=== PATIENT | male | born 1935 | race Caucasian/White ===

== ENCOUNTER → 2017-01-27 | Outpatient (CLI) | payer BC ==
--- NOTE | 2017-01-27 15:58 | DIAGNOSTIC IMAGING REPORT ---
CHEST 2 VIEWS ROUTINE CLINICAL HISTORY: Bilateral rib pain COMPARISON STUDY: No previous studies for comparison. FINDINGS: The cardiac and mediastinal contours are normal. There is no failure. There is no focal pulmonary consolidation. There is no pneumothorax. There are old fractures of the right seventh and eighth ribs.[ No pleural effusions are visualized. IMPRESSION: Old right seventh and eighth rib fractures. No active disease in the chest. Electronically signed by: Bulmaro Doherty M.D. 01/27/2017 3:56 PM Dictated Date/Time: 01/27/2017 3:55 PM
--- NOTE | 2017-01-27 15:59 | DIAGNOSTIC IMAGING REPORT ---
ADDENDUM Periosteal reaction is suggested at the right lateral seventh rib. Only minimal periosteal reaction suggested at the eighth rib. These are age-indeterminate and possibly subacute to chronic. Electronically signed by: Linus Salcido M.D. 01/30/2017 9:18 AM Dictated Date/Time: 01/30/2017 9:18 AM ORIGINAL REPORT RIBS BILATERAL MIN 3 VIEWS CLINICAL HISTORY: 81 years-old Male presenting with RIB PAIN. TECHNIQUE: Frontal and oblique views of the bilateral ribs were obtained. COMPARISON: Correlation made to chest x-ray from 01/27/2017. FINDINGS: Cortical deformity of the right lateral seventh and eighth ribs consistent with acute fractures. No left-sided rib fracture. Limited evaluation of the thorax demonstrates atherosclerosis of aortic arch and a normal sized cardiac silhouette. Lungs and pleural spaces grossly clear. Cholecystectomy and additional surgical clips noted in the abdomen. Degenerative changes of the spine. IMPRESSION: Acute fractures of the right lateral seventh and eighth ribs. Electronically signed by: Linus Salcido M.D. 01/27/2017 3:57 PM Dictated Date/Time: 01/27/2017 3:55 PM
[2017-01-27 16:49] LABS: BASO % 0.3 %; BASO ABS # 0.02 K/uL (0-0.2); COMPLETE YES; EOS % 2.7 %; HEMATOCRIT 43.3 % (42-52); LYMPH % 38.5 %; LYMPH ABS # 2.44 K/uL (1.2-3.4); MEAN CELL VOLUME 90.8 fL (80-100); MEAN CORPUSCULAR HGB CONC 34.2 g/dl (32-36); MEAN PLATELET VOLUME 9.3 fL (7.4-10.4); MONO % 7.1 %; NEUT % 51.4 %; PLATELET COUNT 217 K/uL (130-400); RED BLOOD COUNT 4.77 M/uL (4.7-6.1); WHITE BLOOD COUNT 6.33 K/uL (4.8-10.8)
[2017-01-27 17:15] LABS: ALT/SGPT 23 U/L (12-78); BLOOD UREA NITROGEN 19 mg/dl (7-18); BUN/CREATININE RATIO 13.8 (10-20); CALCIUM 9.6 mg/dl (8.5-10.1); CARBON DIOXIDE 26 mmol/L (21-32); CHLORIDE 104 mmol/L (98-107); GLUCOSE 159 mg/dl (70-99); SODIUM 138 mmol/L (136-145)
[2017-01-27 17:26] LABS: ALB/GLOB RATIO 1.1 (0.9-2); ALKALINE PHOSPHATASE 101 U/L (45-117); AST/SGOT 20 U/L (15-37)
[2017-01-28 07:28] LABS: ESTIMATED AVERAGE GLUCOSE 166 mg/dl; HA1C FLAG Normal (Normal)
== END | disposition home or self-care (01) ==
LOC: C.RADBC 15:27
PROVIDERS: ATTEND Internal Medicine
DX: R07.81 Pleurodynia (principal); R73.09 Other abnormal glucose

== ENCOUNTER → 2017-05-03 | Outpatient (CLI) | payer OTHER, BC | END | disposition home or self-care (01) | LOC: C.LABBC 09:25 | PROVIDERS: ATTEND Internal Medicine | DX: E11.9 Type 2 diabetes mellitus without complications (principal); R73.09 Other abnormal glucose; E03.9 Hypothyroidism, unspecified ==

== ENCOUNTER 2023-09-14 18:59 | Inpatient (IN) ==
[2023-09-14] MEDS: SODIUM CHLORIDE 0.9% 1,000 ML IV SCH (19:23)
--- NOTE | 2023-09-14 19:32 | Emergency Department Note ---
Impression & Plan Stroke-like symptoms ED Provider Note NAME: LENA SHELTON AGE: 88 SEX: Male INFORMANT: Patient ED PROVIDER(S): Godfrey Lemus MD CHIEF COMPLAINT: Strokelike symptoms PLAN: Disposition: Admitted Outpatient prescription management: none Referral: None MEDICAL DECISION MAKING: Patient presented with strokelike symptoms. Currently they resolved. Last well-known time was around 1830 hrs. Full history and physical examination was performed. Stroke alert was initiated. I did ask for the administrative secretary to contact [facility]. I also asked for prior visit records from the [facility]. I did consult with stroke alert [place] physician, Dr. Husain. He recommended only the dry CT given the resolution of symptoms. MRI, baby aspirin, Plavix load of 300 mg, and admission for observation was also recommended. CT imaging did reveal the presence of a subacute infarct. Contacted [facility] again and discussed the findings with Dr. Tipton. She recommended a full load of aspirin at 324 mg, Plavix load of 300 mg, starting 81 mg of aspirin tomorrow and 75 mg of Plavix tomorrow. Also recommended admission. Recommended administration of 80 mg of atorvastatin. This was done. MR imaging was ordered. Unfortunately patient's GFR is too low to receive contrast safely for MRA of the neck. Discussed this with the hospitalist and patient will have ultrasound imaging done. Patient did have MRI/MRA of the head performed. Consultation was made with Dr. Marcin Lerma of the [facility] service. Patient was evaluated in the ER for further management. Care/management discussed with: finance manager Level of care consideration(s): After review of the information above and other included data, I feel the patient can be managed safely as an outpatient/could have required admission but improved significantly and is stable for discharge/requires escalation of care to admission. Triage Nursing notes: reviewed and agree them. Vital Signs: reviewed and remarkable for no significant abnormalities Additional History obtained from: Family. They note facial droop and weakness has resolved. Chronic Medical/Social Conditions affecting care: CAD Prior/ Outside/ External records reviewed: none Differential Diagnosis: CVA, TIA,Infection, dehydration, metabolic abnormality, hypo/hyperglycemia, electrolyte disturbance, anemia, hypoxia, cardiac sources, intracerebral event, toxicologic, neurologic, as well as other pathologies. Diagnostics, independently interpreted by me: ECG: Twelve-lead ECG was sinus rhythm with occasional PVCs at [address] elevation. No depression. Inferior Q waves. Anterior Q waves. No prior for comparison. Cardiac Monitoring: Cardiac monitoring ordered by me: The patient was placed on continuous cardiac monitoring and observed. It revealed a sinus rhythm at 87 beats per minute with occasional PVC. Medical decision rules: none Imaging studies: CT imaging of the head is concerning for a right parietal/occipital subacute infarct. I refer you to the EMR for further details. HPI: 88 year old Male arrives for evaluation of strokelike symptoms. This started around 1830 hrs. and is resolved. Patient was noticed to have some confusion, slurred speech, left facial droop and right arm weakness. He was evaluated by medical provider at the scene and weakness and facial drooping was verified. Upon arrival to the emergency department the symptoms have resolved. Family is present and states that his facial droop is resolved as well as his speech has normalized. Patient states he feels generally weak in the legs but denies any focal findings. Denies any pain. The patient also notes the following associated symptoms, none. 1 week ago the patient had an episode of decreased responsiveness that was transient. There was no drooping or weakness like tonight. He was evaluated in [facility] and [facility] neurowork-up was negative including neuroimaging. The patient has taken no medication tonight for relieving factors. Current pain is rated as 0/10. Pt denies LOC, headache, fevers, chills, diaphoresis, new visual changes, neck pain, chest pain, breathing difficulties, nausea, vomiting, abdominal pain, back pain, melena, hematochezia, urinary symptoms, numbness, or other complaints. PAST MEDICAL HISTORY: See Below, CAD, diabetes PAST SURGICAL HISTORY: See Below, SOCIAL HISTORY: See Below, retired HOME MEDICATIONS: See Below ALLERGIES: See Below VITALS: See Below PHYSICAL EXAMINATION: GENERAL: Awake, alert, well-appearing, in no distress HENT: Normocephalic, atraumatic. Oropharynx unremarkable. EYES: Normal conjunctiva. Sclera non-icteric. PERRLA. EOMI. NECK: Inspection normal. Non-tender. Supple. No nuchal rigidity. FROM. No masses. RESPIRATORY: Clear to auscultation. No wheezes. No rales. Normal respiratory effort. CARDIAC: Normal rate. Normal rhythm. No murmurs. No rubs. Extremities warm and well perfused. Pulses equal. No JVD. GI: Soft, non-distended. No tenderness to palpation. No rebound or guarding. No masses. RECTAL: Deferred. MUSCULOSKELETAL: Atraumatic. Chest examination reveals no tenderness. The back is symmetrical on inspection without obvious abnormality. There is no CVA tenderness to palpation. No joint edema. LOWER EXTREMITIES: Calves are equal size bilaterally and non-tender. No edema. No discoloration. NEURO: Normal sensorium. No sensory or motor deficits noted. Cranial nerves II through XII intact, patient hard of hearing but otherwise normal. No drift. Normal rapid alternating movements. Speech normal SKIN: No rash or jaundice noted. PROCEDURES: none CRITICAL CARE: none OBSERVATION NOTE: none Past Med/Surg History Problem List (Updated 09/14/23 @ 21:11 by Edilberto Chow PA-C) Elevated troponin Stroke-like symptoms (Acute) Rib pain on right side Acute low back pain Post herpetic neuralgia Urothelial carcinoma of kidney CKD (chronic kidney disease), stage III Type 2 diabetes mellitus without complications (Chronic) Elevated serum creatinine (Chronic) Hypothyroidism (Chronic) Type 2 diabetes mellitus (Chronic) Coronary artery disease (Chronic) Dyslipidemia (Chronic) Elevated TSH (Chronic) Essential hypertension (Chronic) Bladder cancer (Chronic) Intermittent palpitations (Chronic) Medical History (Updated 09/14/23 @ 21:11 by Edilberto Chow PA-C) History of lower leg fracture Essential hypertension Non-ST elevation NM (NSTEMI) No history of stroke Hypertension Surgical History History of cholecystectomy H/O transurethral destruction of bladder lesion History of appendectomy S/P CABG (coronary artery bypass graft) History of cystoscopy Family History Father Hypertension Alcoholism Mother Ovarian cancer Other Family history non-contributory Social History Smoking Status: Former smoker Hx Alcohol Use: No Hx Substance Use: No Preferred Language: Cypriot Communication Ability: Effective Visual Impairment: Limited Hearing Ability: Normal Living Manager Required: No Beliefs That Will Affect Care: None marital status: Current Living Situation: Spouse current occupational status: retired Feels Safe at Home: Yes Childhood Exposure to Second-Hand Smoke: No caffeine: Yes Dental Care, Regularly: Yes Physical Activity Frequency: Daily Seatbelt Use: always Sunscreen Use: Yes Assistive Devices: Hearing Aid - Right Allergies Allergies Allergy/AdvReac Type Severity Reaction Status Date / Time No Known Allergies Allergy Verified 08/26/20 09:11 Home Meds Home Medications Medication Instructions Recorded Confirmed lancets (OneTouch UltraSoft #50 ea 01/31/19 08/26/20 Lancets) Previous Rx's Medication Instructions Recorded atorvastatin 40 mg tablet 40 mg PO QAM #1 tab 01/25/19 aspirin 81 mg tablet,delayed 81 mg PO QAM #90 tabs 02/26/19 release (Ecotrin Low Strength) gabapentin 100 mg capsule See Rx Instructions PO DAILY #60 10/04/19 caps levothyroxine 25 mcg tablet 25 mcg PO DAILY #30 tabs 12/03/19 metoprolol succinate 25 mg 12.5 mg (1/2 x 25 mg) PO DAILY #45 02/03/22 tablet,extended release 24 hr tabs Results & Data (ED) Vital Signs Vital Signs - 24 hr 09/14/23 19:03 09/14/23 19:25 09/14/23 20:00 Temperature 36.8 C Temperature Source Temporal Artery Scan Pulse Rate 87 Pulse Rate [Apical] 93 H 76 Respiratory Rate 16 17 19 Respiratory Effort / Characteristics Non-Labored Spontaneous Respiratory Depth Normal Respiratory Pattern Regular Blood Pressure 138/70 Blood Pressure [Right Arm] 169/84 H 170/73 H Blood Pressure Mean 92 Blood Pressure Mean [Right Arm] 112 105 Blood Pressure Position Sitting Pulse Oximetry 98 99 96 Oxygen Delivery Method Room Air Room Air Room Air Sepsis Recent Fever Within 48 Hours No Sepsis New/Unexplained Change in Mental Status N/A Sepsis Action Taken by Nursing No Action Required 09/14/23 21:00 Temperature Temperature Source Pulse Rate Pulse Rate [Apical] 85 Respiratory Rate 23 Respiratory Effort / Characteristics Respiratory Depth Respiratory Pattern Blood Pressure Blood Pressure [Right Arm] 141/76 H Blood Pressure Mean Blood Pressure Mean [Right Arm] 97 Blood Pressure Position Pulse Oximetry 96 Oxygen Delivery Method Room Air Sepsis Recent Fever Within 48 Hours Sepsis New/Unexplained Change in Mental Status Sepsis Action Taken by Nursing Laboratory Data 09/14/23 19:31 09/14/23 19:31 Lab Results 09/14/23 09/14/23 09/14/23 Range/Units 19:22 19:26 19:31 WBC 10.96 H (4.8-10.8) K/ul RBC 4.89 (4.70-6.10) M/uL Hgb 15.1 (14.0-18.0) g/dl POC Hgb 14.6 (14.0-18.0) g/dl Hct 44.3 (42.0-52.0) % POC Hct 43 (42-52) % MCV 90.6 (80.0-100.0) fL MCH 30.9 (25.0-34.0) pg MCHC 34.1 (32.0-36.0) g/dL RDW Std Deviation 43.2 (36.4-46.3) fL RDW Coeff of Mike 13.2 (11.5-14.5) % Plt Count 219 (130-400) K/uL MPV 9.5 (9.4-12.4) fL Immature Gran % (Auto) 0.4 % Neut % (Auto) 70.8 % Lymph % (Auto) 19.5 % [place] % (Auto) 7.9 % Eos % (Auto) 1.0 % Baso % (Auto) 0.4 % Neut # (Auto) 7.76 H (1.40-6.50) K/uL Lymph # (Auto) 2.14 (1.20-3.40) K/uL [place] # (Auto) 0.87 H (0.11-0.59) K/uL Eos # (Auto) 0.11 (0.00-0.50) K/uL Baso # (Auto) 0.04 (0.00-0.20) K/uL Immature Gran # (Auto) 0.04 (0.01-0.20) K/uL PT 10.4 (9.0-12.0) Seconds INR 1.0 (0.9-1.1) APTT 27 (21-31) Seconds PTT Ratio 1.0 POC Sodium 139 (135-144) mmol/L Sodium 137 (136-145) mmol/L POC Potassium 4.3 (3.3-5.0) mmol/L Potassium 4.5 (3.5-5.1) mmol/L POC Chloride 104 (101-112) mmol/L Chloride 105 (98-107) mmol/L Carbon Dioxide 23 (21-32) mmol/L POC Total CO2 24 (24-31) mmol/L Anion Gap 9 (3-11) POC Anion Gap 16.0 (16-25) mmol/L POC BUN 32 H (7-18) mg/dl BUN 32 H (6-23) mg/dl Creatinine 2.09 H (0.6-1.4) mg/dl POC Creatinine 2.4 H (0.6-1.3) mg/dl Est Cr Clr Drug Dosing 27.1 ml/min Est GFR ( Amer) 31.6 ml/min Est GFR (Non-Af Amer) 27.2 ml/min BUN/Creatinine Ratio 15.3 (10-20) Glucose 171 H (70-99(Fasting)) mg/dl POC Glucose 141 H (70-99) mg/dl POC Glucose (other) 171 H (70-99) mg/dl Calcium 9.6 (8.6-10.3) mg/dl POC Ioniz Calcium Guerline 1.22 (1.12-1.32) mmol/l Magnesium 2.2 (1.7-2.4) mg/dl Total Bilirubin 0.5 (0.2-1.0) mg/dl AST 22 (13-39) U/L ALT 25 (7-52) U/L Alkaline Phosphatase 89 (34-104) U/L Troponin I High Sens 40.1 H (0-20) pg/ml Total Protein 7.4 (6.0-8.3) gm/dl Albumin 4.3 (3.4-5.0) gm/dl Globulin 3.1 (2.5-4.0) gm/dl Albumin/Globulin Ratio 1.4 (0.9-2) Blood Type O Positive Antibody Screen NEGATIVE Administered Medications Sodium Chloride (Nss) 1,000 mls @ 50 mls/hr IV .Q20H ARAVIND Stop: 10/14/23 19:14 Last Admin: 09/14/23 19:23 Dose: 50 mls/hr Documented By: LUIS DANIEL Discontinued Medications Aspirin (Aspirin Chew 324 Mg) 324 mg PO NOW STA Stop: 09/14/23 20:28 Last Admin: 09/14/23 21:03 Dose: 324 mg Documented By: LUIS DANIEL Clopidogrel Bisulfate (Clopidogrel Bisulfate 300 Mg Tab) 300 mg PO NOW STA Stop: 09/14/23 20:28 Last Admin: 09/14/23 21:03 Dose: 300 mg Documented By: [facility] Imaging Data Radiologist's Impression: Head CT 09/14/23 19:11 CR Exam(s): CT HEAD Without Contrast EXAM: CT Head Without Intravenous Contrast CLINICAL HISTORY: Reason for exam: neuro deficit, acute stroke suspected. TECHNIQUE: Axial computed tomography images of the head/brain without intravenous contrast. CTDI is 39.03 mGy and DLP is 625.8 mGy-cm. Automated exposure control was utilized for the study. A dose lowering technique was utilized adhering to the principles of ALARA. COMPARISON: CT head on 02/14/2018. FINDINGS: Brain: Hypoattenuation in the right parietal occipital region which is probably represents remote infarct, but component of subacute infarct is not excluded. Further evaluation could be performed with MRI. No extra- axial fluid collection. No mass effect or midline shift. Scattered areas of hypoattenuation in the supratentorial white matter likely represent chronic small vessel ischemic changes. 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 Small remote lacunar infarct in the left basal ganglia. Ventricles and sulci: Prominence of the ventricles and sulci is likely secondary to cerebral volume loss. Bones: Normal. No bony lesion or acute fracture. Subcutaneous tissues: Normal. Sinuses: Polyps versus mucous retention cysts in the maxillary sinuses. Mastoid air cells: Normal. Orbits: Bilateral lens implants. Other: Atherosclerotic calcifications in the intracranial vasculature. IMPRESSION: 1. Hypoattenuation in the right parietal occipital region which is probably represents remote infarct, but component of subacute infarct is not excluded. Further evaluation could be performed with MRI. 2. Chronic small vessel ischemic changes and cerebral volume loss. 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 Small remote lacunar infarct in the left basal ganglia. Communications: Call Doctor Stroke Electronically signed by: Kashif Ford M.D. 09/14/23 20:04 PM Discharge Plan Visit Data Chief Complaint: TIA Symptoms Stated Complaint: SPEACH DIFFICULTY, WEAK ON THE SIDE, ED Provider: Godfrey Lemus Discharge Problem: Stroke-like symptoms Patient Disposition: Admitted As Inpatient Discharge Instructions Interventions: ED Discharge Assessment Last Done: 09/14/23 21:40 Forms Stand Alone Forms: My [facility] Applied [employer] Prescriptions Prescriptions: No Action atorvastatin 40 mg tablet 40 mg PO QAM Qty: 1 0RF aspirin [Ecotrin Low Strength] 81 mg tablet,delayed release (DR/EC) 81 mg PO QAM Qty: 90 1RF gabapentin 100 mg capsule See Rx Instructions PO DAILY Qty: 60 1RF Rx Instructions: 100mg at QHS for 3 nights, then increase to 200mg QHS for 3 nights, then if needed increase to 300mg QHS levothyroxine 25 mcg tablet 25 mcg PO DAILY Qty: 30 2RF metoprolol succinate 25 mg tablet extended release 24 hr 12.5 mg PO DAILY Qty: 45 3RF (DME) lancets [OneTouch UltraSoft Lancets] misc See Dose Instructions .ROUTE .MEDSUPPLY Qty: 50 Rx Instructions: As directed Referrals Referrals: PCP,NO [Primary Care Provider] -
[2023-09-14 19:39] LABS: iSTAT Creatinine 2.4 mg/dl (0.6-1.3); iSTAT Hemoglobin 14.6 g/dl (14.0-18.0); iSTAT Ionized Calcium 1.22 mmol/l (1.12-1.32); iSTAT Potassium 4.3 mmol/L (3.3-5.0)
[2023-09-14 19:44] LABS: Basophils # (auto) 0.04 K/uL (0.00-0.20); Basophils % (auto) 0.4 %; Eosinophils # (auto) 0.11 K/uL (0.00-0.50); Hematocrit (blood only) 44.3 % (42.0-52.0); Hemoglobin 15.1 g/dl (14.0-18.0); Immature Granulocytes # (auto) 0.04 K/uL (0.01-0.20); Immature Granulocytes % (auto) 0.4 %; Lymphocytes # (auto) 2.14 K/uL (1.20-3.40); Lymphocytes % (auto) 19.5 %; Mean Corpuscular Hemoglobin 30.9 pg (25.0-34.0); Mean Corpuscular Hgb Conc 34.1 g/dL (32.0-36.0); Mean Corpuscular Volume 90.6 fL (80.0-100.0); Mean Platelet Volume 9.5 fL (9.4-12.4); Monocytes # (auto) 0.87 K/uL (0.11-0.59); Monocytes % (auto) 7.9 %; Neutrophils # (auto) 7.76 K/uL (1.40-6.50); Neutrophils % (auto) 70.8 %; Platelet Count 219 K/uL (130-400); RDW Coefficient of Variation 13.2 % (11.5-14.5); RDW Standard Deviation 43.2 fL (36.4-46.3); Red Blood Count 4.89 M/uL (4.70-6.10); White Blood Count 10.96 K/ul (4.8-10.8)
[2023-09-14 19:57] LABS: Partial Thromboplastin Time 27 Seconds (21-31); Prothrombin Time 10.4 Seconds (9.0-12.0)
--- NOTE | 2023-09-14 20:05 | CT Scan Report ---
Exam(s): CT HEAD Without Contrast EXAM: CT Head Without Intravenous Contrast CLINICAL HISTORY: Reason for exam: neuro deficit, acute stroke suspected. TECHNIQUE: Axial computed tomography images of the head/brain without intravenous contrast. CTDI is 39.03 mGy and DLP is 625.8 mGy-cm. Automated exposure control was utilized for the study. A dose lowering technique was utilized adhering to the principles of ALARA. COMPARISON: CT head on 02/14/2018. FINDINGS: Brain: Hypoattenuation in the right parietal occipital region which is probably represents remote infarct, but component of subacute infarct is not excluded. Further evaluation could be performed with MRI. No extra- axial fluid collection. No mass effect or midline shift. Scattered areas of hypoattenuation in the supratentorial white matter likely represent chronic small vessel ischemic changes. 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 Small remote lacunar infarct in the left basal ganglia. Ventricles and sulci: Prominence of the ventricles and sulci is likely secondary to cerebral volume loss. Bones: Normal. No bony lesion or acute fracture. Subcutaneous tissues: Normal. Sinuses: Polyps versus mucous retention cysts in the maxillary sinuses. Mastoid air cells: Normal. Orbits: Bilateral lens implants. Other: Atherosclerotic calcifications in the intracranial vasculature. IMPRESSION: 1. Hypoattenuation in the right parietal occipital region which is probably represents remote infarct, but component of subacute infarct is not excluded. Further evaluation could be performed with MRI. 2. Chronic small vessel ischemic changes and cerebral volume loss. 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 Small remote lacunar infarct in the left basal ganglia. Communications: Call Doctor Stroke Electronically signed by: Kashif Ford M.D. 09/14/23 20:04 PM
[2023-09-14 20:09] LABS: Albumin Globulin Ratio 1.4 (0.9-2); Albumin Level 4.3 gm/dl (3.4-5.0); BUN Creatinine Ratio 15.3 (10-20); Bilirubin,Total 0.5 mg/dl (0.2-1.0); Calcium 9.6 mg/dl (8.6-10.3); Creatinine Clr Calc Pharmacy 27.1 ml/min; Est GFR (African American) 31.6 ml/min; Est GFR (Non-African American) 27.2 ml/min; Globulin 3.1 gm/dl (2.5-4.0); Magnesium 2.2 mg/dl (1.7-2.4); Potassium 4.5 mmol/L (3.5-5.1); Total Protein 7.4 gm/dl (6.0-8.3)
[2023-09-14 20:15] LABS: Troponin I High Sensitivity 40.1 pg/ml (0-20)
--- NOTE | 2023-09-14 20:35 | History & Physical Report ---
Date of Service September 14, 2023 Assessment & Plan (1) Stroke-like symptoms: Plan: -Admit to the PCU on tele -Currently stable and back to his neurologic baseline -Presented to the ED after a 15 second episode of decreased responsiveness, left sided facial droop, and right arm weakness this evening -Was made a stroke alert on arrival >CT of the head/neck wo con shows Hypoattenuation in the right parietal occipital region which probably represents remote infarct, but component of subacute infarct is not excluded. -CTA's of the head/neck were not obtained on arrival due to his renal function -[facility] loading with 300 mg Plavix, 324 mg Aspirin, and high dose stain (received in the ED) -Will obtain MRI wo con, MRA wo, and BL carotid dopplers on admission -Will obtain TTE, A1c, and fasting lipid pane; tomorrow -Neurology consult placed -Fall/aspiration precautions, q4h neuro checks -PT/OT consults -Continue 81 mg aspirin, 75 mg Plavix, and high dose statin tomorrow -BL SCD's for DVT PPX -HH/DMII diet with 2gm sodium restriction -AM CBC, CMP, mag, PT/INR (2) Elevated troponin: Plan: -Initial high sen trop elevated at 40 -Patient denies chest pain/discomfort, SOB/GARCIA -No acute ST segment or T-wave changes on ECG -Likely a combination of his known CAD S/P CABG x 4, not taking his aspirin/statin in the recent past, and demand -Will repeat a 2 hour high sen trop now -Follow TTE tomorrow -Continue to monitor on tele (3) Type 2 diabetes mellitus without complications: Plan: -Hold Jardiance for now -Monitor BSG ACHS, goal is 110-160 -Start CF 50 and CR 15 for now -Adjust regimen as needed (4) Hypothyroidism: Plan: -Continue levothyroxine (5) Coronary artery disease: Plan: -Resume Aspirin and statin -Continue Plavix for now Plan The patient was discussed with Dr. 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 Patient was made a stroke alert on arrival. He was found to be hypertensive at 169/84 but otherwise stable. Labs were significant for a leukocytosis of 10 with neutrophil predominance of 7, glucose WNL, and initial high sen trop of 40. CT of the head/brain wo con was read as 1. Hypoattenuation in the right parietal occipital region which is probably represents remote infarct, but component of subacute infarct is not excluded. Further evaluation could be performed with MRI. 2. Chronic small vessel ischemic changes and cerebral volume loss. 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 Small remote lacunar infarct in the left basal ganglia. Chest xray did not show acute findings. The patient was evaluated by [facility] who recommended admission with initiation of 300 mg Plavix, 324 mg Aspirin, Starting a statin, and obtaining MRI/MRA of the head for further evaluation. Prior to admission the patient was given 1L NSS, 300 mg Plavix, 324 mg Aspirin, and 80 mg Atorvastatin. At the time of the exam the patient was sitting in bed in no acute distress with his children bedside, history was obtained from both. Family states that the patient now lives in [place] but they are in town for a wedding. Last week he had a similar episode to today and was evaluated in their local ED in [place]. Family states that he had a full neurologic evaluation and was told he did not have a CVA. They monitored him overnight as his troponin level was mildly elevated. He was discharged home the next day. They were at dinner this evening when the patient had an approximately 15 second episode where he was staring straight, not responding to them, and had left sided facial droop and right arm weakness. They state that he was back to his baseline by the time they arrived to the ED. When asked, the patient denies any complaints at this time including fever, chills, headache, changes in vision, hearing, taste, smell, paresthesias, unilateral weakness, chest pain, SOB, abd pain, nausea, vomiting, diarrhea, dysuria, hematuria, melena, LE swelling, and recent trauma. Family confirms he is back to his neurologic baseline. Family explains that the patient has been very stubborn regarding medications recently and had stopped taking his aspirin and stain. He has only been taking his Jardiance and levothyroxine as of today. I explained the importance of resuming his aspirin and statin moving forward to try and prevent further episodes or worse than today and complications surrounding his heart. He is a DNR/DNI and his children are his POA if he cannot make decisions for himself. Regarding his recurrent lip smacking, family confirms he has been doing this for years, this is not a new finding today. Please refer to Dr. Lerma's attestation for any changes to the treatment plan Allergies Allergy/AdvReac Type Severity Reaction Status Date / Time No Known Allergies Allergy Verified 09/15/23 10:23 Home Medications Medication Instructions Recorded Confirmed Type lancets (OneTouch UltraSoft #50 ea 01/31/19 08/26/20 History Lancets) levothyroxine 25 mcg tablet 25 mcg PO DAILY #30 tabs 12/03/19 09/15/23 Rx ascorbic acid (vitamin C) 500 mg 500 mg PO DAILY 09/15/23 09/15/23 History chewable tablet (Vitamin C) aspirin 81 mg tablet,delayed 81 mg PO QAM 30 days #30 tabs 09/15/23 Rx release atorvastatin 40 mg tablet 80 mg (2 x 40 mg) PO QAM 30 days 09/15/23 Rx #60 tabs clopidogrel 75 mg tablet 75 mg PO QAM #30 tabs 09/15/23 Rx empagliflozin 10 mg tablet 10 mg PO DAILY 09/15/23 09/15/23 History (Jardiance) multivitamin with minerals-folic 1 tab PO BID 09/15/23 09/15/23 History acid 200 mcg chewable tablet (Multivitamin Gummies) Past Med/Surg History Problem List (Updated 09/14/23 @ 21:11 by Edilberto Chow PA-C) Elevated troponin Stroke-like symptoms (Acute) Rib pain on right side Acute low back pain Post herpetic neuralgia Urothelial carcinoma of kidney CKD (chronic kidney disease), stage III Type 2 diabetes mellitus without complications (Chronic) Elevated serum creatinine (Chronic) Hypothyroidism (Chronic) Type 2 diabetes mellitus (Chronic) Coronary artery disease (Chronic) Dyslipidemia (Chronic) Elevated TSH (Chronic) Essential hypertension (Chronic) Bladder cancer (Chronic) Intermittent palpitations (Chronic) Medical History (Updated 09/14/23 @ 21:11 by Edilberto Chow PA-C) History of lower leg fracture Essential hypertension Non-ST elevation MD (NSTEMI) No history of stroke Hypertension Surgical History History of cholecystectomy H/O transurethral destruction of bladder lesion History of appendectomy S/P CABG (coronary artery bypass graft) History of cystoscopy Family History Father Hypertension Alcoholism Mother Ovarian cancer Other Family history non-contributory Social History Smoking Status: Former smoker Hx Alcohol Use: Yes Alcohol type: beer Hx Substance Use: No Preferred Language: Nigerien Communication Ability: Effective Visual Impairment: Limited Hearing Ability: Normal Poultry Process Worker Required: No Beliefs That Will Affect Care: None and Faith Faith Beliefs: AMISH marital status: Current Living Situation: Alone Current Living Situation Comment: INDEPENT LIVING current occupational status: retired Feels Safe at Home: Yes Childhood Exposure to Second-Hand Smoke: No caffeine: Yes Dental Care, Regularly: Yes Physical Activity Frequency: Daily Seatbelt Use: always Sunscreen Use: Yes Assistive Devices: Cane and Walker Physical Exam Physical Exam: Physical Exam: General: In no acute distress, stated age, well-nourished, good hygiene HEENT: Normocephalic, atraumatic, no scleral icterus, pupils around round, symmetrical, and reactive to light, moist mucus membranes, trachea midline, no thyromegaly Chest/Pulm: No respiratory distress, symmetrical chest expansion, clear breath sounds throughout Cardiac: RRR, no murmurs noted Abdomen: Negative for ascites and bruising, normoactive bowel sounds, soft, non-tender to palpation throughout Musculoskeletal: Symmetrical and without signs of acute trauma, upper and lower extremities with full ROM, no atrophy, spasticity, or flaccidity Extremities: Radial, dorsalis pedis, and posterior tibial pulses are intact and symmetrical, no edema noted in the BL LE's Skin: Warm, dry, no rashes , lesions, or scars noted Neuro: Alert and oriented to person, place, month, year, and president, no focal defects, CN II-XII tested and intact, negative cerebellar and pronator drift in the BL UE's, no tremors noted Psych: No acute distress, calm and cooperative during the exam Results & Data Results & Data Vital Signs (Past 12 Hours) Vital Signs Temp Pulse Pulse Resp BP BP Pulse Ox 09/14/23 20:00 76 19 170/73 H 96 09/14/23 19:25 93 H 17 169/84 H 99 09/14/23 19:03 36.8 C 87 16 138/70 98 O2 Del Method 09/14/23 20:00 Room Air 09/14/23 19:25 Room Air 09/14/23 19:03 Room Air Laboratory Results Abnormal lab results 09/14/23 09/14/23 09/14/23 Range/Units 19:22 19:26 19:31 WBC 10.96 H (4.8-10.8) K/ul Neut # (Auto) 7.76 H (1.40-6.50) K/uL Benton # (Auto) 0.87 H (0.11-0.59) K/uL POC BUN 32 H (7-18) mg/dl BUN 32 H (6-23) mg/dl Creatinine 2.09 H (0.6-1.4) mg/dl POC Creatinine 2.4 H (0.6-1.3) mg/dl Glucose 171 H (70-99(Fasting)) mg/dl POC Glucose 141 H (70-99) mg/dl POC Glucose (other) 171 H (70-99) mg/dl Troponin I High Sens 40.1 H (0-20) pg/ml Diagnostic Findings Head CT 09/14/23 19:11 CR Exam(s): CT HEAD Without Contrast EXAM: CT Head Without Intravenous Contrast CLINICAL HISTORY: Reason for exam: neuro deficit, acute stroke suspected. TECHNIQUE: Axial computed tomography images of the head/brain without intravenous contrast. CTDI is 39.03 mGy and DLP is 625.8 mGy-cm. Automated exposure control was utilized for the study. A dose lowering technique was utilized adhering to the principles of ALARA. COMPARISON: CT head on 02/14/2018. FINDINGS: Brain: Hypoattenuation in the right parietal occipital region which is probably represents remote infarct, but component of subacute infarct is not excluded. Further evaluation could be performed with MRI. No extra- axial fluid collection. No mass effect or midline shift. Scattered areas of hypoattenuation in the supratentorial white matter likely represent chronic small vessel ischemic changes. 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 Small remote lacunar infarct in the left basal ganglia. Ventricles and sulci: Prominence of the ventricles and sulci is likely secondary to cerebral volume loss. Bones: Normal. No bony lesion or acute fracture. Subcutaneous tissues: Normal. Sinuses: Polyps versus mucous retention cysts in the maxillary sinuses. Mastoid air cells: Normal. Orbits: Bilateral lens implants. Other: Atherosclerotic calcifications in the intracranial vasculature. IMPRESSION: 1. Hypoattenuation in the right parietal occipital region which is probably represents remote infarct, but component of subacute infarct is not excluded. Further evaluation could be performed with MRI. 2. Chronic small vessel ischemic changes and cerebral volume loss. 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 Small remote lacunar infarct in the left basal ganglia. Communications: Call Doctor Stroke Electronically signed by: Kashif Ford M.D. 09/14/23 20:04 PM ECG Additional Comments: Sinus rhythm with occasional Premature ventricular complexes and Premature atrial complexes Inferior infarct , age undetermined Anterior infarct , age undetermined Abnormal ECG When compared with ECG of 16-APR-2018 10:56, Premature ventricular complexes are now Present Questionable change in QRS duration Anterior infarct is now Present Inferior infarct is now Present Code Status & VTE Plan Code Status DNR/DNI VTE Prophylaxis Plan VTE Prophylaxis will be ordered: Yes Supervising Physician Co-Signing Physician Notes Attending addendum: I have physically seen this patient, have supervised the NORIS's activities, and agree with the H&P unless as otherwise noted. Assessment and Plan: Strokelike symptoms- The patient will be admitted to telemetry for serial cardiac enzymes, serial EKG's, cardiac rhythm monitoring and a 2-D echocardiogram with Dopplers. Patient was made a stroke alert upon arrival CT of the head without contrast shows hypoattenuation in the right parietal occipital region which probably represents a remote infarct, but a component of subacute infarct is not excluded CTA of head and neck deferred due to baseline renal function Order MRI of brain without contrast Order MRA brain without contrast Order carotid Dopplers Patient was given loading dose of clopidogrel 300 mg and aspirin 324 mg, as recommended by stroke neurology Continue clopidogrel 75 mg daily and aspirin 81 mg daily Stroke without tPA order set Consult PT/OT/speech Family reports that patient had a similar workup done about a week ago in [place]. Patient is here for a wedding, and has not been taking either his aspirin or statin Check a fasting lipid Elevated troponin- Troponin 40.1 The patient will be admitted to telemetry for serial cardiac enzymes, serial EKG's, cardiac rhythm monitoring and a 2-D echocardiogram with Dopplers. Likely supply/demand mismatch Diabetes mellitus- Hold Jardiance Placed on Accu-Cheks with NovoLog SSI as noted Check hemoglobin A1c PG Care Time/CCT Total # of Minutes Spent Total Time Spent with Patient: Total time spent is greater than 50% in coordination of care (as documented) at patient's floor/unit and/or counseling patient: Coding [place] [address] INT INP/OBS CARE 3/75MIN Patient Type Established Medical Decision Making High Complexity Diagnoses Stroke-like symptoms R29.90 Elevated troponin R79.89 Type 2 diabetes mellitus without complications E11.9 Acquired hypothyroidism E03.9 Hypothyroidism type: acquired Coronary artery disease involving [place] coronary artery of [place] heart without angina pectoris I25.10 Associated angina: without angina Coronary Disease-Associated Artery/Lesion type: [place] artery [place] vs. transplanted heart: [place] heart (4) Hypothyroidism Hypothyroidism type: acquired Qualified Code(s): E03.9 - Hypothyroidism, unspecified (5) Coronary artery disease Associated angina: without angina Coronary Disease-Associated Artery/Lesion type: [place] artery [place] vs. transplanted heart: [place] heart Qualified Code(s): I25.10 - Atherosclerotic heart disease of [place] coronary artery without angina pectoris
[2023-09-14] MEDS ORDERED: PHARMACIST DISCHARGE MED REC CONSULT PRN (20:56)
[2023-09-14] MEDS: CLOPIDOGREL BISULFATE 300 MG TAB PO STA (21:03)
[2023-09-14] MEDS: ASPIRIN CHEW 324 MG PO STA (21:03)
[2023-09-14] MEDS ORDERED: CARBOHYDRATES FOR HYPOGLYCEMIA PO PRN (21:06)
[2023-09-14] MEDS ORDERED: GLUCOSE 40% GEL 15 GM TUBE PO PRN (21:06)
[2023-09-14] MEDS ORDERED: GLUCAGON FOR INJ 1 MG VIAL SQ PRN (21:06)
[2023-09-14] MEDS ORDERED: DEXTROSE 50% 50 ML SYRINGE IV PRN (21:06)
[2023-09-14] MEDS ORDERED: GLUCOSE 10 TAB/TUBE PO PRN (21:06)
[2023-09-14] MEDS ORDERED: ACETAMINOPHEN 325 MG TAB PO PRN (23:04)
[2023-09-14] MEDS: ATORVASTATIN 40 MG TAB PO STA (23:10)
--- NOTE | 2023-09-15 00:53 | Magnetic Resonance Report ---
Exam(s): MRA HEAD Without Contrast EXAM: MR Angiography Head Without Intravenous Contrast CLINICAL HISTORY: Reason for exam: right occipital parietal stroke. TECHNIQUE: Magnetic resonance angiography images of the head without intravenous contrast. COMPARISON: No relevant prior studies available. FINDINGS: Right internal carotid artery: Severe stenosis extending from the cavernous to supraclinoid segment. No aneurysm. Right anterior cerebral artery: Hypoplastic right A1 segment with filling via the anterior communicating artery. No occlusion or significant stenosis. No aneurysm. Right middle cerebral artery: Unremarkable. No occlusion or significant stenosis. No aneurysm. Right posterior cerebral artery: Unremarkable. No occlusion or significant stenosis. No aneurysm. Right vertebral artery: Excluded from view and not evaluated. Left internal carotid artery: No acute findings. Intracranial segment is patent with no significant stenosis. No aneurysm. Left anterior cerebral artery: Unremarkable. No occlusion or significant stenosis. No aneurysm. Left middle cerebral artery: Unremarkable. No occlusion or significant stenosis. No aneurysm. Left posterior cerebral artery: Unremarkable. No occlusion or significant stenosis. No aneurysm. Left vertebral artery: Excluded from view and not evaluated. Basilar artery: Unremarkable. No occlusion or significant stenosis. No aneurysm. IMPRESSION: 1. Apparent severe stenosis within the right ICA. 2. Limited exam. Both vertebral arteries are excluded from view and not evaluated. Electronically signed by: Mohit Patel M.D. 09/15/23 00:52 AM
--- NOTE | 2023-09-15 01:01 | Magnetic Resonance Report ---
Exam(s): MRI HEAD Without Contrast EXAM: MR Head Without Intravenous Contrast CLINICAL HISTORY: Reason for exam: stroke like symptoms, abn CT. TECHNIQUE: Magnetic resonance images of the head/brain without intravenous contrast in multiple planes. COMPARISON: CT head 09/14/23 FINDINGS: Brain: Punctate focus of diffusion restriction in the right dodd radiata suggesting acute/subacute lacunar infarct. Punctate focus of diffusion restriction in the left thalamus suggesting acute/subacute lacunar infarct. No other foci of diffusion restriction. No acute intracranial hemorrhage. No mass-effect or midline shift. Generalized loss of parenchymal volume. Periventricular and deep cerebral white matter FLAIR signal hyperintensity consistent with chronic small vessel ischemic disease. Encephalomalacia within the right occipital and right parietal lobes compatible with chronic cortical infarcts. Multiple chronic lacunar infarcts within the bilateral cerebellar hemispheres and bilateral basal ganglia. Ventricles: No hydrocephalus. Bones/joints: Unremarkable. No acute fracture. Sinuses: Trace mucosal thickening in the maxillary sinuses. Paranasal sinuses otherwise clear. Mastoid air cells: Unremarkable as visualized. No mastoid effusion. Orbits: Bilateral lens replacements. IMPRESSION: Punctate acute/subacute lacunar infarcts suggested within the right dodd radiata and left thalamus. Communications: Call Doctor Other Electronically signed by: Mohit Patel M.D. 09/15/23 01:00 AM
[2023-09-15 06:34] LABS: Albumin Globulin Ratio 1.4 (0.9-2); Albumin Level 3.9 gm/dl (3.4-5.0); BUN Creatinine Ratio 15.8 (10-20); Bilirubin,Total 0.5 mg/dl (0.2-1.0); Calcium 9.1 mg/dl (8.6-10.3); Chol HDL Ratio 5.2 (0-5); Creatinine Clr Calc Pharmacy 27.1 ml/min; Est GFR (African American) 31.6 ml/min; Est GFR (Non-African American) 27.2 ml/min; Globulin 2.7 gm/dl (2.5-4.0); Magnesium 2.2 mg/dl (1.7-2.4); Potassium 4.1 mmol/L (3.5-5.1); Total Protein 6.6 gm/dl (6.0-8.3)
[2023-09-15] MEDS: LEVOTHYROXINE SODIUM 25 MCG TABLET PO SCH (06:37)
[2023-09-15 06:38] LABS: Basophils # (auto) 0.04 K/uL (0.00-0.20); Basophils % (auto) 0.4 %; Eosinophils # (auto) 0.15 K/uL (0.00-0.50); Eosinophils % (auto) 1.6 %; Hematocrit (blood only) 40.8 % (42.0-52.0); Hemoglobin 13.7 g/dl (14.0-18.0); Immature Granulocytes # (auto) 0.03 K/uL (0.01-0.20); Immature Granulocytes % (auto) 0.3 %; Lymphocytes # (auto) 2.33 K/uL (1.20-3.40); Lymphocytes % (auto) 24.1 %; Mean Corpuscular Hemoglobin 30.4 pg (25.0-34.0); Mean Corpuscular Hgb Conc 33.6 g/dL (32.0-36.0); Mean Corpuscular Volume 90.7 fL (80.0-100.0); Mean Platelet Volume 9.8 fL (9.4-12.4); Monocytes # (auto) 0.98 K/uL (0.11-0.59); Monocytes % (auto) 10.1 %; Neutrophils # (auto) 6.14 K/uL (1.40-6.50); Neutrophils % (auto) 63.5 %; Platelet Count 201 K/uL (130-400); RDW Coefficient of Variation 13.2 % (11.5-14.5); RDW Standard Deviation 43.6 fL (36.4-46.3); White Blood Count 9.67 K/ul (4.8-10.8)
[2023-09-15 06:39] LABS: Prothrombin Time 10.5 Seconds (9.0-12.0)
[2023-09-15 07:13] LABS: Estimated Average Glucose 163 mg/dl; Hemoglobin A1C 7.3 % (4.5-5.6)
--- NOTE | 2023-09-15 07:52 | XRay Report ---
SINGLE VIEW CHEST CLINICAL HISTORY: Neurological deficit. Stroke like symptoms. FINDINGS: 2 AP, portable, upright chest radiographs are compared to study dated 08/26/2020. The patien t is status post midline sternotomy. The heart is enlarged noting atherosclerotic calcification of th e thoracic aorta. The pulmonary vasculature is noncongested. Chronic interstitial thickening is simil ar to previous. There is mild bibasilar scarring/atelectasis. No airspace consolidation or large pleu ral effusion is identified. No pneumothorax is seen. An indeterminant 2.7 cm nodular density projects over the right heart border. The skeletal structures are osteopenic. There are chronic/healed right- sided rib fractures. Cholecystectomy clips are seen in the right upper quadrant. IMPRESSION: 1. Cardiomegaly with no acute cardiopulmonary abnormality identified. 2. An indeterminate 2.7 cm nodular density projects over the right heart border. This may or present superimposition of shadows. Correlation with a chest CT is recommended for further assessment and to exclude underlying pulmonary lesion. ACT 112: Positive. There are findings on this exam that require communication between the performing entity and the patient following Patient Test Result Information Act ([place] Act 112) guidelines. Electronically signed by: Trever Ferreira M.D. 09/15/2023 7:49 AM
--- NOTE | 2023-09-15 08:42 | Neurology Consultation ---
Date of Consultation September 15, 2023 Assessment & Plan (1) Stroke-like symptoms: History of Present Illness Attending Physician: Alex Chan MD History of Present Illness pt this morning feeling well. want to go home. mri brain with small punctate ischemic stroke that is subacute in nature. no confusion and no weakness. chart reviewed. admission HPi: Jamil is a 88 year old male with a PMH significant for CAD S/P CABG x4 (WASSERMAN to LAD, SVG to diagonal, OM1, PDA ) 03/2018 at [facility] [place], high-grade papillary papillary urothelial carcinoma S/P left robotic-assisted nephroureterectomy on 01/15/20, HTN, DMII, CKD, and hyperlipidemia who presented to the [facility] ED on 09/14/23 due to concerns of acute mental status changes noticed by family. Patient was made a stroke alert on arrival. He was found to be hypertensive at 169/84 but otherwise stable. Labs were significant for a leukocytosis of 10 with neutrophil predominance of 7, glucose WNL, and initial high sen trop of 40. CT of the head/brain wo con was read as 1. Hypoattenuation in the right parietal occipital region which is probably represents remote infarct, but component of subacute infarct is not excluded. Further evaluation could be performed with MRI. 2. Chronic small vessel ischemic changes and cerebral volume loss. 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 Small remote lacunar infarct in the left basal ganglia. Chest xray did not show acute findings. The patient was evaluated by [facility] who recommended admission with initiation of 300 mg Plavix, 324 mg Aspirin, Starting a statin, and obtaining MRI/MRA of the head for further evaluation. Prior to admission the patient was given 1L NSS, 300 mg Plavix, 324 mg Aspirin, and 80 mg Atorvastatin. At the time of the exam the patient was sitting in bed in no acute distress with his children bedside, history was obtained from both. Family states that the patient now lives in [place] but they are in town for a wedding. Last week he had a similar episode to today and was evaluated in their local ED in [place]. Family states that he had a full neurologic evaluation and was told he did not have a CVA. They monitored him overnight as his troponin level was mildly elevated. He was discharged home the next day. They were at dinner this evening when the patient had an approximately 15 second episode where he was staring straight, not responding to them, and had left sided facial droop and right arm weakness. They state that he was back to his baseline by the time they arrived to the ED. When asked, the patient denies any complaints at this time including fever, chills, headache, changes in vision, hearing, taste, smell, paresthesias, unilateral weakness, chest pain, SOB, abd pain, nausea, vomiting, diarrhea, dysuria, hematuria, melena, LE swelling, and recent trauma. Family confirms he is back to his neurologic baseline. Family explains that the patient has been very stubborn regarding medications recently and had stopped taking his aspirin and stain. He has only been taking his Jardiance and levothyroxine as of today. I explained the importance of resuming his aspirin and statin moving forward to try and prevent further episodes or worse than today and complications surrounding his heart. He is a DNR/DNI and his children are his POA if he cannot make decisions for himself. Regarding his recurrent lip smacking, family confirms he has been doing this for years, this is not a new finding today. Allergies Allergy/AdvReac Type Severity Reaction Status Date / Time No Known Allergies Allergy Verified 08/26/20 09:11 Home Medications Medication Instructions Recorded Confirmed Type atorvastatin 40 mg tablet 40 mg PO QAM #1 tab 01/25/19 08/26/20 Rx lancets (OneTouch UltraSoft #50 ea 01/31/19 08/26/20 History Lancets) aspirin 81 mg tablet,delayed 81 mg PO QAM #90 tabs 02/26/19 08/26/20 Rx release (Ecotrin Low Strength) gabapentin 100 mg capsule See Rx Instructions PO DAILY #60 10/04/19 08/26/20 Rx caps levothyroxine 25 mcg tablet 25 mcg PO DAILY #30 tabs 12/03/19 08/26/20 Rx metoprolol succinate 25 mg 12.5 mg (1/2 x 25 mg) PO DAILY #45 02/03/22 Rx tablet,extended release 24 hr tabs Patient History Medical History (Updated 09/14/23 @ 21:11 by Edilberto Chow PA-C) History of lower leg fracture Essential hypertension Non-ST elevation WI (NSTEMI) No history of stroke Hypertension Surgical History History of cholecystectomy H/O transurethral destruction of bladder lesion History of appendectomy S/P CABG (coronary artery bypass graft) History of cystoscopy Family History Father Hypertension Alcoholism Mother Ovarian cancer Other Family history non-contributory Social History Smoking Status: Former smoker Smoking End Date: QUIT AT LEAST 30 YEARS AGO; Hx Alcohol Use: Yes Alcohol type: beer Hx Substance Use: No Preferred Language: [place] Communication Ability: Effective Visual Impairment: Limited Hearing Ability: Normal 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 Beliefs That Will Affect Care: None and Sabianism Sabianism Beliefs: [employer] marital status: Current Living Situation: Alone Current Living Situation Comment: [facility] current occupational status: retired Other Information That Helps Us Care for You: No Feels Safe at Home: Yes Safety Concerns: Feels Safe At This Time Childhood Exposure to Second-Hand Smoke: No caffeine: Yes Dental Care, Regularly: Yes Physical Activity Frequency: Daily Seatbelt Use: always Sunscreen Use: Yes Assistive Devices: Cane, Glasses, Hearing Aid - Bilateral and Walker Review of Systems Review of Systems: All systems reviewed & are unremarkable except as noted in Subjective Constitutional: as per Subjective / HPI Eyes: as per Subjective / HPI Ear, Nose, Mouth, Throat: as per Subjective / HPI Respiratory: as per Subjective / HPI Cardiovascular: as per Subjective / HPI Gastrointestinal: as per Subjective / HPI Musculoskeletal: as per Subjective / HPI Integumentary: as per Subjective / HPI Neurologic: as per Subjective / HPI Psychiatric: as per Subjective / HPI Endocrine: as per Subjective / HPI Hematologic / Lymphatic: as per Subjective / HPI Allergy / Immunological: as per Subjective / HPI Exam (Neuro) Physical Exam: HEENT: normocephalic Neuro: Mental: Alert, knew the year and name of the hospital, good historian about his living situation, fluent speech, normal comprehension, no apraxia, no L/R confusion, no neglect CN: PERRL, Full EOM, symmetric face, intact sensation t/o face, midline T/U/P, 5/5 SCM/traps. Motor: No abnormal movements, normal tone and bulk, 5/5 t/o bilaterally Sens: intact to touch b/l grossly Coord: intact grossly. DTR: 2+ sym b/l Gait: deferred. Impression: 88 yo male with transient confusion and ?face droop with resolved symptoms. his MRI brain noted for subacute small pucntate rt subcortical and l eft thalamus ischemic stroke, likely at least 1-2 weeks old. pt currently asymptomatic. Pt lives at the assisted living and there has been issue with med compliance (he is visiting from [place]). Pt likely had TIA event and perhaps dehydration and med noncompliance issue contributed to his symptoms. His stroke pattern does not appears to be embolic in nature. Recommendations: 1. 2. antiplatelet therapy: continue DAPT a s below. * DAPT (dual antiplatelet therapy): start for pts with ABCD2 score 4 or higher. Initial loading dose with ASA 325mg and Plavix 300mg (if pt has not been started), then ASA 81mg daily and Plavix 75mg daily. Continue DAPT for 21 days if found small vessel disease only or continue for 90 days if found to have intracranial large artery atherosclerosis. After that, can continue single antiplatelet therapy (either ASA or Plavix). 3. Images: TTE with bubble. MRA noted f or rt ICA severe stenosis, likely chronic issue, consider vascular consult for future possible intervention. 4no need for permissive HTN as this poin t as pt's stroke appears to be subacute in nature. 5. 6. Long-term SBP goal less than 130. 7. Plenty of hydration including IV/PO fluid Avoid hypovolemia and hypotension. 8. Initiate DVT prevention therapy. 9. Avoid hypoglycemia, serum glucose goa l during hospitalization: 140-180. 10. Long-term HgA1c goal less than 7. 11. Start statin if not on it and no abs olute contraindication, long-term LDL goal less than 70. 12. Head of bed up 30 degrees if possibl e. 14. Telemetry monitoring. Consider fdc cardiac monitoring, i.e. MCOT (mobile cardiac outpatient telemetry) or ICM (insertable public safety telecommunicator, e.g. LINQ), if never had terminal worker cardiac monitoring done previously. And if found to have atrial flutter or fibrillation, should consider anticoagulation therapy if no contraindication. 16. Consult physical and occupational th erapy for any need as outpt. otherwise, not much to add from neurology stand point. call again if new question. Chart reviewed I have spent more than 50% educating patient about potential diagnosis and neurological evaluation and coordinating care with patient's treatment team. Total time spent (including chart review and coordination of care): 60 min (this includes chart review). Results & Data Vital Signs (Past 12 Hours) Vital Signs Temp Pulse Pulse Resp BP Pulse Ox O2 Del Method 09/15/23 08:00 36.3 C L 79 16 148/76 H 99 Room Air 09/15/23 03:49 36.7 C 59 L 18 145/69 H 97 Room Air 09/15/23 00:14 78 09/14/23 23:05 36.6 C 77 18 147/80 H 96 Room Air 09/14/23 21:00 85 23 141/76 H 96 Room Air PG Care Time/CCT Total # of Minutes Spent Total Time Spent with Patient: Total time spent is greater than 50% in coordination of care (as documented) at patient's floor/unit and/or counseling patient: Coding Level of Care Code 64351 IN/OBS CONSULT LVL 4,60M Diagnoses Stroke-like symptoms R29.90
[2023-09-15] MEDS: ASPIRIN 81 MG ECTAB PO SCH (09:14)
[2023-09-15] MEDS: ATORVASTATIN 40 MG TAB PO SCH (09:14)
[2023-09-15] MEDS: CLOPIDOGREL BISULFATE 75 MG TAB PO SCH (09:14)
--- NOTE | 2023-09-15 09:20 | Ultrasound Report ---
ULTRASOUND OF THE CAROTID ARTERIES CLINICAL HISTORY: Stroke. COMPARISON STUDY: No priors TECHNIQUE: Real-time, grayscale, and color Doppler sonography of the carotid arteries is performed. I mages are reviewed in the transverse and longitudinal planes. FINDINGS: The carotid arteries are patent bilaterally and demonstrate antegrade flow. There atherosclerotic brenda que seen in the carotid bulbs bilaterally. There is diminished flow and blunted arterial upstrokes in the mid to distal right internal carotid artery. Velocity measurements are listed below. Common carotid peak systolic velocity (cm/sec): RIGHT: 69 LEFT: 90 ICA proximal peak systolic velocity (cm/sec): RIGHT: 156 LEFT: 95 ICA mid peak systolic velocity (cm/sec): RIGHT: 11 LEFT: 138 ICA distal peak systolic velocity (cm/sec): RIGHT: 14 LEFT: 80 ICA/CC peak systolic ratio: RIGHT: 2.2 LEFT: 1.5 Antegrade flow was shown in the vertebral arteries. The external carotid arteries are patent. IMPRESSION: 1. 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 There is diminished flow within the mid to distal right internal carotid artery with blunted a rterial upstroke, and the velocity measurement may be underestimating the degree of stenosis. 2. There is evidence of 56% stenosis in the mid left internal carotid artery by velocity criteria. 3. Antegrade flow is shown in the vertebral arteries. ACT 112: Negative or not required by law. Electronically signed by: Trever Ferreira M.D. 09/15/2023 9:18 AM
[2023-09-15] MEDS: INSULIN ASPART PER UNIT CHARGE SC SCH (09:22)
--- NOTE | 2023-09-15 09:56 | Pharmacy Report ---
- Date of Service September 15, 2023 - Pharmacy CVA/TIA Medication Review Medications to Prevent Stroke handout has been added to the patients discharge packet. Antiplatelet(s) * Dual antiplatelet therapy: Aspirin 81 mg daily + Plavix 75 mg daily for 21 days then reduce to single anti-platelet therapy. Cholesterol * High intensity statin: Atorvastatin 80 mg daily DVT Prophylaxis * SCD knee Therapeutic Anticoagulation * No history of Afib/Aflutter noted Type 2 Diabetes * Patient has T2DM, but per provider, a diabetes medication with proven CVD benefit will be deferred to their outpatient provider due to familiarity with risks/benefits of such therapies. "Medications to prevent stroke" handout has already been added to the patient's discharge packet, which instructs the patient to follow up with their outpatient provider to evaluate which diabetes medication with proven CVD benefit is best for them
--- NOTE | 2023-09-15 10:25 | Electrocardiogram Report ---
Test Reason : Blood Pressure : / mmHG Vent. Rate : 085 BPM Atrial Rate : 085 BPM P-R Int : 186 ms QRS Dur : 102 ms QT Int : 360 ms P-R-T Axes : 043 003 073 degrees QTc Int : 428 ms Sinus rhythm with occasional Premature ventricular complexes and Premature atrial complexes Inferior infarct , age undetermined Poor R wave progression, consider anterior MN vs. lead placement vs. LVH Abnormal ECG When compared with ECG of 16-APR-2018 10:56, Premature ventricular complexes are now Present Inferior infarct is now Present Confirmed by Alex Mackay ([id number]) on 09/15/2023 10:24:49 AM Referred By: REFERRED SELF Confirmed By:Quintin Mackay
--- NOTE | 2023-09-15 10:56 | XCELERA ---
[id number]
--- NOTE | 2023-09-15 15:24 | Electrocardiogram Report ---
Test Reason : Blood Pressure : / mmHG Vent. Rate : 073 BPM Atrial Rate : 073 BPM P-R Int : 194 ms QRS Dur : 102 ms QT Int : 380 ms P-R-T Axes : 048 006 074 degrees QTc Int : 418 ms Sinus rhythm with Premature atrial complexes possible Inferior infarct (cited on or before 14-SEP-2023) Abnormal ECG When compared with ECG of 14-SEP-2023 19:16, Premature ventricular complexes are no longer Present Confirmed by Alex Mackay ([id number]) on 09/15/2023 3:24:17 PM Referred By: REFERRED SELF Confirmed By:Quintin Mackay
[2023-09-15] MEDS: STROKE PATIENT DISCHARGE STA (15:49)
--- NOTE | 2023-09-15 17:45 | Discharge Summary ---
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 Patient was made a stroke alert on arrival. He was found to be hypertensive at 169/84 but otherwise stable. Labs were significant for a leukocytosis of 10 with neutrophil predominance of 7, glucose WNL, and initial high sen trop of 40. CT o f the head/brain wo con was read as 1. Hypoattenuation in the right parietal occipital region which is probably represents remote infarct, but component of subacute infarct is not excluded. Further evaluation could be performed with MRI. 2. Chronic small vessel ischemic changes and cerebral volume loss. 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 Small remote lacunar infarct in the left basal ganglia. Chest xray did not show acute findings. The patient was evaluated by [facility] who recommended admission with initiation of 300 mg Plavix, 324 mg Aspirin, Starting a statin, and obtaining MRI/MRA of the head for further evaluation. Prior to admission the patient was given 1L NSS, 300 mg Plavix, 324 mg Aspirin, and 80 mg Atorvastatin. At the time of the exam the patient was sitting in bed in no acute distress with his children bedside, history was obtained from both. Family states that the patient now lives in [place] but they are in town for a wedding. Last week he had a similar episode to today and was evaluated in their local ED in [place]. Family states that he had a full neurologic evaluation and was told he did not have a CVA. They monitored him overnight as his troponin level was mildly elevated. He was discharged home the next day. They were at dinner this evening when the patient had an approximately 15 second episode where he was staring straight, not responding to them, and had left sided facial droop and right arm weakness. They state that he was back to his baseline by the time they arrived to the ED. When asked, the patient denies any complaints at this time including fever, chills, headache, changes in vision, hearing, taste, smell, paresthesias, unilateral weakness, chest pain, SOB, abd pain, nausea, vomiting, diarrhea, dysuria, hematuria, melena, LE swelling, and recent trauma. Family confirms he is back to his neurologic baseline. Family explains that the patient has been very stubborn regarding medications recently and had stopped taking his aspirin and stain. He has only been taking his Jardiance and levothyroxine as of today. I explained the importance of resuming his aspirin and statin moving forward to try and prevent further episodes or worse than today and complications surrounding his heart. He is a DNR/DNI and his children are his POA if he cannot make decisions for himself. Regarding his recurrent lip smacking, family confirms he has been doing this for years, this is not a new finding today. Please refer to Dr. Lerma's attestation for any changes to the treatment plan Principal Diagnosis CVA Discharge Exam Constitutional WD/WN, vitals as above Eyes + anicteric sclerae Neck normal visual inspection Respiratory normal respiratory effort, lungs clear to auscultation Cardiovascular RRR, no murmur, no edema Gastrointestinal (Abdomen) Inspection/Auscultation: abdomen normal to inspection Musculoskeletal Head/Neck/Chest: normocephalic and head atraumatic Skin no rashes, warm and dry Neurologic CN's II-XI intact bilaterally, moves all extremities and awake; no focal motor deficits Psychiatric A+Ox3, euthymic affect Discharge Data Allergies Allergy/AdvReac Type Severity Reaction Status Date / Time No Known Allergies Allergy Verified 09/15/23 10:23 Consultations 09/14/23 20:29 ED Decision to Admit Stat 09/14/23 20:56 Consult Neurology Routine 09/15/23 14:29 Burn CD for patient Routine Ordered Studies 09/14/23 19:11 CT head/brain wo con Stat 09/14/23 20:07 MR brain wo con Stat 09/14/23 20:15 MR angio head wo con Stat 09/15/23 US carotid doppler BI Routine Hospital Course (1) Stroke-like symptoms: Patient is an 88-year-old male who presents to the hospital for new onset strokelike symptoms. Fortunately within the timeframe it took for him to come to the emergency department, his symptoms have resolved. However, he was admitted for further workup/evaluation for cerebrovascular accident. Workup including brain MRI/MRA had identified a subacute stroke with possibly acute component indicative of a stroke within the past 2 weeks. MRA also identified right ICA severe stenosis and bilateral carotid Doppler demonstrated right proximal ICA stenosis at 50 to 69%. Case was discussed with on-call vascular surgeon who felt that no intervention would be recommended at this time. Fo rtunately while he was here, his deficits which included a left facial droop and right sided upper extremity weakness. He was seen by both PT and OT as well as speech-language pathology and no deficits were noted on all 3 examinations. Neurology was consulted who recommended dual antiplatelet therapy for 90 days and thereafter continue on either just aspirin or Plavix. Otherwise, he was strongly encouraged that he continue taking atorvastatin 80 mg daily for secondary prevention. His blood pressure goal is systolic 130 or less as he is outside the window for permissive hypertension. He was instructed that given his history of CABG as well as arterial stenosis and carotid and cranium, that he should follow-up with cardiology for chronic management recommendations. Patient to follow-up with primary care provider within 1 week of discharge. (2) Elevated troponin: Chronic issue, secondary to CKD 3B. No intervention required. Patient without chest pain. (3) Type 2 diabetes mellitus without complications: Admission A1c of 7.3, consider controlled given age, continue home regimen (4) CKD (chronic kidney disease), stage III: Noted. (5) Hypothyroidism: Continue home levothyroxine Total Time Total Time Spent Total Time Spent (In Minutes): 31 Discharge Plan Discharge Items Patient Disposition: Home - Self-Care Reason For Visit: ACUTE/SUBACUTE CVA Discharge Diagnosis: Acute/ Subacute CVA Activity: Per Instructions section Non-emergency contact: Primary Care Provider and Facility Security Officer Call non-emergency contact if: you have any medication questions Follow-up/Referrals: PCP,NO [Primary Care Provider] - Diet: Regular Addtl Attending Provider Instructions: You were seen in the hospital for concern of facial droop and one-sided limb weakness. While you are here, it was found that you had a stroke which was found on MRI. We feel that the stroke is subacute meaning it is approximately 1 to 2 weeks old and there is evidence of an acute stroke as well in the same territory. Fortunately by the time of discharge, your symptoms had resolved. For this reason, the neurology team was consulted who made the following recommendations: -Start dual antiplatelet therapy with aspirin 81 mg daily and Plavix 75 mg daily for 90 days and then continue on Plavix only thereafter. -Restart atorvastatin 40 mg daily -A1c goal of 7-8 -LDL cholesterol goal of less than 70 These medications will be sent to the pharmacy listed on admission. Otherwise continue all your other home medications at current dose. It is likely that the stroke you experienced is due to the stenosis/plaque buildup in your right internal carotid artery. Imaging shows severe stenosis of the right internal carotid especially in the cranium. There is also moderate st enosis in the right internal carotid that is in the neck. I discussed this with the vascular surgeon on-call and he felt that there is no surgical intervention that would be of benefit at this time. Given your plaque buildup in your vasculature as well as your history of a CABG, I recommend that you follow-up with your music department chair to help manage your vascular risk factors long-term. Please follow-up with your primary care provider within 1 week of discharge. Is been a pleasure to be a part of your care and we wish you the best in both your health and your recovery. Pending Studies at Discharge: No Stand-Alone Forms: [facility], Smoking Cessation, Medications to Prevent Stroke Medications and DC Order Prescriptions: New atorvastatin 40 mg Tablet 80 mg PO QAM 30 Days Qty: 60 2RF clopidogrel 75 mg Tablet 75 mg PO QAM Qty: 30 2RF aspirin 81 mg Tablet,Delayed Release (Dr/Ec) 81 mg PO QAM 30 Days Qty: 30 2RF Continued levothyroxine 25 mcg tablet 25 mcg PO DAILY Qty: 30 2RF (DME) lancets [OneTouch UltraSoft Lancets] misc See Dose Instructions .ROUTE .MEDSUPPLY Qty: 50 Rx Instructions: As directed ascorbic acid (vitamin C) [Vitamin C] 500 mg Tablet,Chewable 500 mg PO DAILY multivit with min-folic acid [Multivitamin Gummies] 200 mcg Tablet,Chewable 1 tab PO BID Jardiance 10 mg tablet 10 mg PO DAILY Discharge Orders: Discharge Order (Routine); Ordered 09/15/23 Ordered By: Fabian Acuna/Other Patient Handouts: High Blood Sugar (Hyperglycemia), Managing Type 2 Diabetes, Stroke: Taking Medicines, Stroke Mood Swings Depression, Stroke: Self-Care, Carotid Artery Problems: Stroke, Cholesterol Lifestyle Changes Admission Data Admit Date/Time: 09/14/23 20:56 Attending Provider: Alex Chan Admit Provider: Edilberto Chow Primary Care Provider: PCP,NO Other Providers: Marcin Lerma; Godfrey Waterman Other Interventions: Discharge Summary Assessment (RN) Last Done: 09/15/23 15:22 Supervising Physician Co-Signing Physician Notes Attending attestation Pt seen and examined in concert with Dr. Greenberg. In agreement with the documented findings as noted in the resident documentation with any exceptions or additions as noted here. Resting comfortably in bed with resolution of presenting symptoms. On examination, S1/S2 nl RRR no MCG. CTAB. Abd NT/ND BS+ve. CNII-XII grossly intact. CVA, acute on subacute - strongly reinforced secondary prevention adherence. Continue ASA, plavix x 90 days then clopidogrel following. Restart atorvastatin therapy. Follow up with primary care. Else see resident documentation as noted. Total attending physician time spent with this patient's care on the day of discharge: 35 minutes.
--- OUTSIDE RECORDS SUMMARY | 2023-09-21 07:00 | External Medical Summary | Continuity of Care Document ---
Author Name Unknown Organization [facility] [address] Address [address] [place], [place] [id number] Care Team Providers Care Insurance Adjuster Name Role Phone Linus Abreu Primary Care Physician [id number] Encounter [facility] [id number] Date(s): 09/14/23 - 09/14/23 [facility] [address] [place], [place] [id number] [place] Discharge Disposition: Home or Self Care Attending Physician: MD Rodrigue, Tyrone Elmore Referring Physician: MD Mariah, Godfrey Wei Allergies, Adverse Reactions, Alerts No Known Allergies Immunizations Given and Recorded Vaccine Date Status Refusal Reason BCG vaccine 1, 2 09/17/19 Given BCG vaccine 3 09/10/19 Given BCG vaccine 4 09/03/19 Given BCG vaccine 08/27/19 Given BCG vaccine 5 08/20/19 Given BCG vaccine 6 08/13/19 Given Not Given Vaccine Date Status Refusal Reason pneumococcal 23-valent vaccine 7 01/22/19 Not Give n Patient Refuses 1Early/Late Reason: Other : 2Result Comment: witnissed by Alejandrina Leigh RN 3Early/Late Reason: New Med Order 4Result Comment: administerd byBoaz Goff 5Result Comment: left nephrostomy tube 6Result Comment: completed [id number] 7Result Comment: will receive from PCP after hospitalization- Medications atorvastatin 40 mg oral tablet Start: 04/26/18 1:56:00 PM EST, 1 tab, PO, Daily Start Date: 04/26/18 Status: Ordered Augmentin 500 mg-125 mg oral tablet Start: 01/14/20 10:08:00 AM EDT, amoxicillin (as trihydrate) 1 tab, PO, q12h, Disp# 8, Pharmacy: [facility]/pharmacy #[id number] Start Date: 01/14/20 Stop Date: 01/18/20 Status: Ordered docusate sodium 100 mg oral capsule Start: 01/17/20 6:48:00 AM EDT, 1 cap, PO, bid, Disp# 30 cap, PRN: as needed for constipation, Pharmacy: [facility] Start Date: 01/17/20 Status: Ordered Keflex 250 mg oral capsule Start: 05/18/20 11:20:00 AM EST, 1 cap, PO, bid, Disp# 6 cap, Pharmacy: [facility]/pharmacy #[id number] Start Date: 05/18/20 Stop Date: 05/21/20 Status: Ordered Keflex 500 mg oral capsule Start: 01/31/22 11:32:00 AM EDT, 1 cap, PO, q8h, Disp# 3 cap, Pharmacy: [facility]/pharmacy #[id number] Start Date: 01/31/22 Stop Date: 02/01/22 Status: Ordered levothyroxine Start: 11/21/19 1:21:00 PM EDT, 80 mcg =, PO, Daily Start Date: 11/21/19 Status: Ordered metFORMIN 500 mg oral tablet Start: 04/26/18 1:56:00 PM EST, 1 tab, PO, Daily Start Date: 04/26/18 Status: Ordered metoprolol succinate (ER) Start: 01/23/19 8:56:00 AM EDT, 12.5 mg =, PO, Daily Start Date: 01/23/19 Status: Ordered polyethylene glycol 3350 oral powder for reconstitution Start: 01/17/20 6:48:00 AM EDT, 17 g =, PO, Daily, Disp# 255 g, Pharmacy: [facility] Start Date: 01/17/20 Status: Ordered Tylenol 500 mg oral tablet Start: 01/23/19 5:57:00 AM EDT, 2 tab, PO, q8h, PRN: pain - mild Start Date: 01/23/19 Status: Ordered Problem List Condition Confirmation Course Effective Dates Status Health St [facility] Informant History of nonmelanoma skin cancer Confirmed Active Hypertension Confirmed Active Irregular heartbeat Confirmed Active Bladder cancer Confirmed Active Urothelial carcinoma of kidney Confirmed Active Urothelial carcinoma of kidney Confirmed Active Preop examination Confirmed Active Prediabetes Confirmed Active Procedures Procedure Date Related Diagnosis Body Site Status CYSTOSCOPY LITHOTRIPSY LASER 11/25/19 Completed CYSTOSCOPY WITH TURBT 07/2019 Com pleted Percutaneous nephrolithotomy 06/26/19 Completed CYSTOSCOPY LITHOTRIPSY LASER 05/27/19 Completed CYSTOSCOPY WITH TURBT 03/06/19 Com pleted CYSTOSCOPY LITHOTRIPSY LASER x2 multiple, 2019 10/2018 Completed Open heart surgery, Rudy velez s--BYPASS GRAFT CORONARY ARTERY 04/20/18 Completed Shave biopsy and cauterizati on of skin 1 06/29/17 Completed Appendectomy Completed Bladder cancer Completed Cholecystectomy Completed leg fracture Surgery 2 Co mpleted 1right cheek 2leg fracture Social History Social History Type Response Smoking Status Former Smoker, quit > 1 yr Sex Male Implantable Device List Procedure Provider Procedure Date Device Type Site Unknown Unknown 06/26/19 Unknown Unknown Device Identifier Serial Number Lot or Batch Number Manufacturing Date Expiration Date Distinct Identification Code MRI Safety Implantable Status Assigning Authority Unknown Unknown [id number] Unknown 10/18/21 Unknown Unknown Active Unk nown Procedure Provider Procedure Date Device Type Site Unknown Unknown 03/06/19 Unknown Unknown Device Identifier Serial Number Lot or Batch Number Manufacturing Date Expiration Date Distinct Identification Code MRI Safety Implantable Status Assigning Authority Unknown Unknown [id number] Unknown 11/28/21 Unknown Unknown Active Unknown Procedure Provider Procedure Date Device Type Site Unknown Unknown 10/29/18 Unknown Unknown Device Identifier Serial Number Lot or Batch Number Manufacturing Date Expiration Date Distinct Identification Code MRI Safety Implantable Status Assigning Authority Unknown Unknown [id number] Unknown 07/25/21 Unknown Unknown Active Unknown Patient Care team information Care Team Personnel Name: MD Abreu Paul Position: Referring DIRECT Member Role: Primary Care Provider Address: Address: [address] [place] [address] [place] Name: MD Solis John Position: Physician - Urology Member Role: Lifetime Relationship Address: Address: [address] [place] [address] [place] Name: LORI Fleming Samantha Position: Nurse Pract - Urology Member Role: Lifetime Relationship Address: Address: [address] [place] [address] [place] Name: Sameer Colnó Matthew Position: Pharmacist Member Role: Pharmacy - Lifetime Name: MD Robert, Broderick Calabrese Position: Physician - Urology Member Role: Lifetime Relationship Address: Address: [address] [place] [address] [place] Care Team Related Persons Name: ARMANDO SHELTON Address: home [address] [facility], [place] [id number] Name: GALLO SHELTON Address: home [address] [id number] Name: BRANDON SHLETON Address: home [address] [facility] [id number]
== END 2023-09-15 16:08 | disposition home or self-care (01) | DRG 66 ==
LOC: ED 18:59 → 4W 20:56 → OBSVTOIN 20:56 → SUATTDRO 20:56 → INTOOBSV 20:56 → 4W 21:40